=== PATIENT | female | born 1980 | race American Indian/Alaskan Native ===

== ENCOUNTER 2018-08-17 10:14 | Emergency (ER) | payer BC ==
[2018-08-17 10:25] VITALS: BMI 37.2
[2018-08-17 10:28] VITALS: RESP 18; TEMP 98.6; O2SAT 99
--- NOTE | 2018-08-17 11:00 | ED PDOC ---
Arrival/HPI - General Chief Complaint: Allergic Reaction Time Seen by Provider: 08/17/18 10:27 Historian: Patient - History of Present Illness Narrative History of Present Illness (Text): 08/17/18 11:09 A 37 year old female, with no significant past medical history, presents to the emergency department complaining of allerigc reaction. Patient reports she used jaylan 3 days ago. Since using it, she states she hasn't felt normal, feeling as though forehead was swollen, and itchiness on scalp and body. Upon waking up this morning, patient found her left eye to be swollen. She states she has used jaylan before earlier this year, however this time she added something to the jaylan, as she felt she didn't have enough to put in her hair. Patient became concerned and decided to come to the ER for evaluation of symptom. Patient de nies any shortness of breath, throat swelling, rash, or any other complaints at this time. No PMD Past Medical History - Provider Review Nursing Documentation Reviewed: Yes - Infectious Disease Hx of Infectious Diseases: None - Reproductive Menopause: No - Psychiatric Hx Substance Use: No - Surgical History Hx Section: Yes - Anesthesia Hx Anesthesia: No Family/Social History - Physician Review Nursing Documentation Reviewed: Yes Family/Social History: No Known Family HX Smoking Status: Smokes Cig Hx Alcohol Use: Yes Hx Substance Use: No Allergies/Home Meds Allergies/Adverse Reactions: Allergies Hair Dye Allergy (Uncoded 08/17/18 10:37) ANGIOEDEMA Home Medications: Home Meds Medication Instructions Recorded Confirmed No Known Home Med 08/17/18 08/17/18 Review of Systems - Physician Review All systems were reviewed & negative as marked: Yes - Review of Systems ENT: absent: Other (no throat swelling) Respiratory: absent: SOB Skin: Other (left-eye swelling). absent: Rash Physical Exam Vital Signs Reviewed: Yes Vital Signs Temp Pulse Resp BP Pulse Ox 08/17/18 10:24 98.6 F 89 18 128/85 99 Temperature: Afebrile Blood Pressure: Normal Pulse: Regular Respiratory Rate: Normal Appearance: Positive for: Well-Appearing, Non-Toxic, Comfortable Pain Distress: None Mental Status: Positive for: Alert and Oriented X 3 - Systems Exam Head: Present: Other (erythema to scalp (left-side>right-side); mild erythema to left-side forhead, no pustuals, no vesicals. ) Pupils: Present: PERRL Extroacular Muscles: Present: EOMI, Other (left-eye upper and lower eyelids swollen) Conjunctiva: Present: Normal Mouth: Present: Moist Mucous Membranes, Normal Tounge (no tongue swelling) Pharnyx: Present: Normal (no throat swelling) Neck: Present: Normal Range of Motion Respiratory/Chest: Present: Clear to Auscultation, Good Air Exchange. No: Respiratory Distress, Accessory Muscle Use Cardiovascular: Present: Regular Rate and Rhythm, Normal S1, S2. No: Murmurs Abdomen: No: Tenderness, Distention, Peritoneal Signs Back: Present: Normal Inspection Upper Extremity: Present: Normal Inspection. No: Cyanosis, Edema Lower Extremity: Present: Normal Inspection. No: Edema Neurological: Present: GCS=15, CN II-XII Intact, Speech Normal Skin: Present: Warm, Dry, Normal Color. No: Rashes Psychiatric: Present: Alert, Oriented x 3, Normal Insight, Normal Concentration Medical Decision Making ED Course and Treatment: 08/17/18 11:10 Impression: 37 year old female with allergic reaction with left-eye swelling. Plan: -- Pepcid -- prednisone -- Reassess and disposition Progress Notes: - Scribe Statement The provider has reviewed the documentation as recorded by the Angeles Mcarthur Provider Scribe Attestation: All medical record entries made by the Scribe were at my direction and personally dictated by me. I have reviewed the chart and agree that the record accurately reflects my personal performance of the history, physical exam, medical decision making, and the department course for this patient. I have also personally directed, reviewed, and agree with the discharge instructions and disposition. Disposition/Present on Arrival - Present on Arrival Any Indicators Present on Arrival: No History of DVT/PE: No History of Uncontrolled Diabetes: No Urinary Catheter: No History of Decub. Ulcer: No History Surgical Site Infection Following: None - Disposition Have Diagnosis and Disposition been Completed?: Yes Diagnosis: Allergic reaction Disposition: HOME/ ROUTINE Disposition Time: 11:12 Patient Plan: Discharge Condition: STABLE Discharge Instructions (ExitCare): Allergy Skin Testing, Angioedema (DC) Referrals: Jaimie Chen MD [Medical Doctor] - Follow up with primary [facility] at [facility] [place]] - Follow up with primary Forms: [employer] (Kiswahili)
[2018-08-17 11:23] VITALS: BP 135/78; PULSE 88
== END 2018-08-17 11:22 | disposition home or self-care (01) ==
LOC: ED 10:14
DX: T78.49XA Other allergy, initial encounter (principal); X58.XXXA Exposure to other specified factors, initial encounter